=== PATIENT | female | born 1980 ===

== ENCOUNTER 2017-11-23 13:05 | Emergency (ER) | payer OTHER ==
[2017-11-23 14:11] VITALS: BMI 36.6
[2017-11-23 15:19] LABS: SQUAMOUS EPITHIAL 6 /hpf (0-5); URINE BACTERIA OCC (<OCC); URINE BILIRUBIN NEGATIVE (NEGATIVE); URINE BLOOD NEGATIVE (NEGATIVE); URINE CLARITY CLOUDY (Clear); URINE COLOR YELLOW (YELLOW); URINE GLUCOSE (UA) 50 mg/dL (Normal); URINE LEUKOCYTE ESTERASE TRACE Leu/uL (Negative); URINE PROTEIN 30 mg/dL (NEGATIVE); URINE UROBILINOGEN 0.2-1.0 mg/dL (0.2-1.0)
[2017-11-23 17:58] LABS: BASO % 0.4 % (0.0-2.0); EOS # 0.1 K/uL (0.0-0.7); EOS % 0.9 % (0.0-4.0); HEMOGLOBIN 13.1 g/dL (12.0-16.0); LYMPH # 2.8 K/uL (1.0-4.3); MEAN CELL VOLUME 90.1 fl (81.0-99.0); MEAN CORPUSCULAR HGB CONC 33.3 g/dL (33.0-37.0); MEAN PLATELET VOLUME 8.1 fl (7.2-11.7); MONO # 0.9 K/uL (0.0-0.8); MONO % 9.2 % (0.0-10.0); NEUT # 5.6 K/uL (1.8-7.0); NEUT % 59.5 % (50.0-75.0); NRBC % 0.2 % (0.0-0.0); RBC 4.38 Mil/uL (3.80-5.20); WHITE BLOOD COUNT 9.5 K/uL (4.8-10.8)
[2017-11-23] MEDS: Lactated Ringer's 1,000 ML IV SCH ×3 (18:00→19:45)
[2017-11-24 01:23] VITALS: BP 127/72; PULSE 91; RESP 18; TEMP 98.2; O2SAT 99
== END 2017-11-23 20:45 | disposition home or self-care (01) ==
LOC: H.EROB2 13:05
DX: O47.03 False labor before 37 completed weeks of gestation, third trimester (principal); Z3A.35 35 weeks gestation of pregnancy; O26.93 Pregnancy related conditions, unspecified, third trimester; R10.2 Pelvic and perineal pain
CPT/HCPCS: 81003; 85025; 86850; 86900; 96360; 99283; J7120

== ENCOUNTER 2017-12-31 19:32 | Inpatient (IN) | payer OTHER ==
--- NOTE | 2017-12-31 19:40 | OBHP ---
Datetime: 11/23/2017 14:38 IP Adm Impression: , intrauterine ; No Active Labor; Intact Membranes IP Admit Plan: Observation/Evaluation; Discharge home Admit Comment, IP Provider: 36wks GA c/o cramping. No ctxs, vb, lof. Pt reports good FM. Otherwis e pt without complaints PMHx none PSHx none Meds PNV NKDA OBHx SocHx No tox hab PE refer to PE findings A -- 36wks, no active labor. Both MWB/FWB reassuring at this time P -- discharge home Pelvic Type - PN: Adequate Extremities - PN: Normal Abdomen - PN: Normal Back - PN: Normal Breast - PN: Normal Lungs - PN: Normal Heart - PN: Normal Thyroid - PN: Normal Neurologic - PN: Normal HEENT - PN: Normal General - PN: Normal FHR - Baseline A Provider: 140s Membranes, Provider: Intact IP Hx Assessment: The History has been Reviewed and is Current EGA AdmitDate IP: 35.2 Vital Signs Provider: Reviewed; Within Normal Limits IP Chief Complaint: Uterine contractions NICHD Variability Prov Fetus A: Moderate 6-25bpm NICHD Accel Fetus A IP Provider: 15X15 FHR Category Provider Fetus A: Category I NICHD Decel Fetus A IP Provider: None Dilatation, Provider: 0 Effacement, Provider: 0 Station, Provider: -3 Genitourinary Exam: Normal DTRs - PN: Normal
[2017-12-31 19:41] VITALS: BMI 37.8
[2017-12-31 20:48] LABS: BASO % 0.3 % (0.0-2.0); EOS # 0.1 K/uL (0.0-0.7); EOS % 0.7 % (0.0-4.0); LYMPH # 1.9 K/uL (1.0-4.3); LYMPH % 26.9 % (20.0-40.0); MEAN CORPUSCULAR HEMOGLOBIN 30.7 pg (27.0-31.0); MEAN CORPUSCULAR HGB CONC 34.5 g/dL (33.0-37.0); MEAN PLATELET VOLUME 7.8 fl (7.2-11.7); MONO # 0.5 K/uL (0.0-0.8); MONO % 7.3 % (0.0-10.0); NEUT # 4.6 K/uL (1.8-7.0); NEUT % 64.8 % (50.0-75.0); RBC 3.91 Mil/uL (3.80-5.20); RED CELL DISTRIBUTION WIDTH 15.1 % (11.5-14.5); WHITE BLOOD COUNT 7.1 K/uL (4.8-10.8)
[2017-12-31] MEDS ORDERED: Oxytocin 30 units/LR 500ML 30 U/500 ML BAG IV ONE (21:35)
--- NOTE | 2017-12-31 21:51 | OBADHP ---
Datetime: 12/31/2017 20:10 Admit Comment, IP Provider: This is 37 y/o F, , IUP@40.5 comes to the [facility] for IOL Patient denies any LOF/BV/CTX, admits good FM ROS unremarkable PMH: Denies PSH: Denies Allg: NKDA Meds: PNV SH: Denies alcohol/smoking or illicit drug use FH: Dad: heart problem, MOM: Kidney problem + HTN PNC: [facility] PNI: No abnormal labs or any issues VS: Reviewed PE: As above. A/P: This is 37 y/o F, , IUP@40.5 comes to the [facility] for IOL - VS: Reviewed - Admit to L_D - Initiate IOL protocol - Serial examination - Observation, NST/FHT/VS - Reevaluate Case discussed with Dr. Elias --- Sylvie Maxwell, PGY-1 The patient was seen with the resident and I agree with the note. Bedside sonogram reveals vertex presentation induction of labor with Cervidil discussed plan of care with patient and partner agree Extremities - PN: Normal Abdomen - PN: Normal Back - PN: Normal Breast - PN: Not Done Lungs - PN: Normal Heart - PN: Normal Thyroid - PN: Normal Neurologic - PN: Normal HEENT - PN: Normal General - PN: Normal Comments, ACOG Physical Exam: GBS negative HIV/RPR nega Vital Signs Provider: Reviewed; Within Normal Limits IP Chief Complaint: Scheduled induction of labor EGA AdmitDate IP: 40.5 IP Adm Impression: Postterm, intrauterine IP Admit Plan: Admit to unit; Initiate labor induction protocol Datetime: 12/31/2017 20:03 Pelvic Type - PN: Adequate FHR - Baseline A Provider: 130 KRISTYD Variability Prov Fetus A: Moderate 6-25bpm NICHD Accel Fetus A IP Provider: 15X15 NICHD Decel Fetus A IP Provider: None Datetime: 11/23/2017 14:38 Membranes, Provider: Intact IP Hx Assessment: The History has been Reviewed and is Current FHR Category Provider Fetus A: Category I Dilatation, Provider: 0 Effacement, Provider: 0 Station, Provider: -3 Genitourinary Exam: Normal DTRs - PN: Normal
[2018-01-01] MEDS: Lactated Ringer's 1,000 ML IV SCH ×4 (02:00→20:27)
[2018-01-01] MEDS ORDERED: Nalbuphine 20 mg/ml Inj (1 ml) IVP PRN (04:37)
[2018-01-01] MEDS ORDERED: Lactated Ringer's 1,000 ML IV SCH (06:15)
[2018-01-01] MEDS ORDERED: ceFAZolin 2 GM in Sodium Chloride 0.9% 100 ML IVPB STA (09:24)
--- NOTE | 2018-01-01 09:31 | OBPN ---
Datetime: 01/01/2018 09:24 IP Informed Consent Obtain: Section Delivery Contraction Comments Provider: occasional FHR - Baseline A Provider: 150 IP Progress Note Comment: Cervidil removed earlier this AM. Patient requesting elective . R manueliewed risks/benefits of vaginal delivery with recovery and future deliveries and and futu re deliveries and recovery. Patient again requested elective , did not want to proceed witih induction. Reviewed again risks of surgery, patient signed informed consent, Ancef given pre-operati vely, SCDs bilaterally. Will proceed with when available Vital Signs Provider: Reviewed; Within Normal Limits NICHD Variability Prov Fetus A: Minimal - Undetectable to <5bpm Dilatation, Provider: closed NICHD Decel Fetus A IP Provider: None Datetime: 12/31/2017 20:03 NICHD Accel Fetus A IP Provider: 15X15 Datetime: 11/23/2017 14:38 Membranes, Provider: Intact FHR Category Provider Fetus A: Category I Effacement, Provider: 0 Station, Provider: -3
[2018-01-01] MEDS ORDERED: Phenylephrine 10 mg/ml Inj ONE (09:33)
[2018-01-01] MEDS ORDERED: ePHEDrine 50 mg/ml Inj ONE (09:35)
[2018-01-01] MEDS ORDERED: Morphine 1 mg/ml preservative-free Inj(Duramorph) ONE (09:35)
[2018-01-01] MEDS ORDERED: DiphenhydrAMINE 50 mg/ml Inj IVP PRN ×2 (10:51→18:19)
[2018-01-01] MEDS ORDERED: Oxycodone/Acetaminophen 5/325 mg Tab PO PRN ×2 (10:51→18:19)
--- NOTE | 2018-01-01 12:07 | OBDS ---
DELIVERY PERSONNEL Delivery Doctor: Maria Luisa Martinez MD Scrub Nurse: Iris Hyman Ed Special Education Teacher: Fred Lopez RN Anesthesiologist: Zuleyka Kennedy MD Resident: Ira Khanna PGY3 MATERNAL INFORMATION Delivery Anesthesia: Spinal Medications in Delivery: Pitocin 30u/500LR Provider Comments: Surgeon: Dr. Martinez Medication Specialist: Dr. Khanna PGY3 Pre-op Dx: Elective , AMA Surgery: Primary LTCS Post-op: Same Findings: live male , 7lbs 4oz, 9/9, cephalic, grossly nml tubes, uterus, omentum with adhes ions to posterior aspect of fundus, omental dissection Post-operative: Same EBL: 950mL UO:50mL Total input: 1200mL Anesthesia: Spinal by Dr. Kennedy Complications: Omental adhesions to posterior wall of uterus, lysis of adhesions Condition: Stable Pathology: Cord blood LABOR SUMMARY EDC: 12/26/2017 00:00 No. Babies in Womb: 1 LABOR INFORMATION Cervical Ripening Agents: Cervidil (Annotations: inserted by Dr. Maxwell-PGY-1) Group B Beta Strep: Negative MEMBRANES Membranes Rupture Method: Spontaneous Rupture of Membranes: 01/01/2018 06:10 Length of Rupture (hrs): 4.50 Amniotic Fluid Color: Bloody Amniotic Fluid Amount: Small Amniotic Fluid Odor: Normal STAGES OF LABOR Stage 3 hrs: 0 Stage 3 min: 2 CSECTION DELIVERY CSection Urgency: Elective CSection Incidence: Primary Labor: No Labor Elective: Elective BABY A INFORMATION Infant Delivery Date/Time: 01/01/2018 10:40 Method of Delivery: Born in Route : No : N/A Forceps: N/A Vacuum Extraction: N/A Shoulder Dystocia : No SHOULDER DYSTOCIA BABY A Infant Delivery Date/Time: 01/01/2018 10:40 PRESENTATION/POSITION BABY A Presentation: Cephalic PLACENTA INFORMATION BABY A Placenta Delivery Time : 01/01/2018 10:42 Placenta Method of Delivery: Manual Removal Placenta Status: Delivered SCORES BABY A Heart Rate 1 min: >100 bpm Resp Effort 1 min: Good Cry Reflex Irritability 1 min: Cough or Sneeze or Pulls Away Muscle Tone 1 min: Active Motion Color 1 min: Body [place], Extremities Blue SCORE 1 MIN: 9 Heart Rate 5 min: >100 bpm Resp Effort 5 min: Good Cry Reflex Irritability 5 min: Cough or Sneeze or Pulls Away Muscle Tone 5 min: Active Motion Color 5 min: Body [place], Extremities Blue SCORE 5 MIN: 9 INFORMATION BABY A Gestational Age at Delivery: 40.6 Gestational Status: Term Infant Outcome : Liveborn Infant Condition : Stable Infant Sex: Male IDENTIFICATION/MEDS BABY A ID Band Number: [id number] ID Band Location: Left Leg; Left Arm WEIGHT/LENGTH BABY A Infant Birthweight (gms): 3300 Infant Weight (lb): 7 Weight (oz): 4 CORD INFORMATION BABY A No. Cord Vessels: 3 Nuchal Cord : Around Neck x1, Loose Cord Blood Taken: Yes Infant Suction: None; Mouth ASSESSMENT BABY A Complications: None Physical Findings at Delivery: Within Normal Limits Respirations: Appears Normal Infant Care By: Haroon
--- NOTE | 2018-01-01 15:35 | OP ---
PROCEDURE DATE: 01/01/2018 PREOPERATIVE DIAGNOSES: Elective section, advanced maternal age at term. POSTOPERATIVE DIAGNOSIS: Elective section, advanced maternal age at term. SURGERY: Primary low transverse section. SURGEON: Betsy Martinez MD BAND TOP MAKER: , PGY-3. TYPE OF ANESTHESIA: Spinal. ANESTHESIA ADMINISTERED BY: Leon Kennedy MD FINDINGS: Live male , 7 pounds 4 ounces, 9 and 9 Apgars, grossly normal tubes, uterus and placenta. Omentum with adhesions to posterior aspect of uterus. ESTIMATED BLOOD LOSS: 950 mL. URINE OUTPUT: 50 mL. TOTAL FLUID INPUT: 1200 mL. COMPLICATIONS: Omental adhesions to posterior wall of uterus, lysis of adhesions. CONDITION: Stable. PATHOLOGY SPECIMEN: Cord blood. INDICATIONS: This is a 37-year-old at 40 plus weeks who presents to labor and delivery for induction. The patient did not progress in labor after half a day of induction and at this point, the patient requested for elective . The patient was advised the risks and benefits of an elective in terms of postoperative recovery and future delivery complications as well as vaginal delivery for recovery as well as future delivery complications and benefits. The patient after understanding risks and benefits of both options still requested to proceed with elective . The induction process was stopped and elective process was initiated. The patient was advised the risks and benefits of surgery including risk of bleeding, infection, damage to surrounding organs. The patient signed informed consent. The patient was taken to the OR when available. DESCRIPTION OF PROCEDURE: The patient was taken to the OR. Ancef was given preoperatively. SCDs were placed bilaterally. The patient was prepped and draped in a normal sterile fashion in dorsal supine position with a leftward tilt. A Pfannenstiel skin incision was made with a scalpel and carried through to the underlying layer of fascia with the scalpel and the Bovie. The fascia was incised in the midline. The incision was extended laterally with the Bovie. We incised the fascia of the midline. We used the Jose Guadalupe clamps and tented up the inferior aspect of this incision, which we dissected off of the underlying pyramidalis muscles with the Bovie. In a similar fashion, we dissected off of the rectus abdominis muscles with the Bovie. We the muscles bluntly at the midline. The peritoneum identified, grasped with hemostats and entered sharply with the Metzenbaum scissors. The incision was extended superiorly and inferiorly with good visualization of all underlying organs. Bladder blade was inserted. Vesicouterine peritoneum was identified, grasped with pickups and Metzenbaum scissors and a bladder flap was created. The lower uterine segment was incised in a transverse fashion. The uterine cavity was entered. Clear fluid was noted. The uterine incision was extended manually. The was delivered in cephalic presentation atraumatically followed by shoulders and rest of the infant atraumatically. Double nuchal cord loose was noted. Cord was clamped and cut. Infant was handed off to the awaiting pediatric team. Cord blood was obtained. Placenta was extracted manually. Uterus was exteriorized, cleared off all clots. Uterine incision was repaired with an 0 Vicryl stitch with second imbricating 0 Monocryl stitch. Some bleeders and the hysterotomy site were reinforced with an 0-Monocryl stitch. It is noted at this point that the omentum had some filmy adhesions to the posterior wall. We dissected carefully and that clears base aspects. Bleeding was coagulated with Bovie on the uterine wall and some small bleeders were tamponaded with 2-0 Vicryl stitch on the posterior wall. The omentum was inspected and areas that had defects in them were taken down. Bleeding was tamponaded with Bovie as well as free ties and 2-0 Vicryl stitching. The omentum at the end was reinspected and found to be hemostatic. The uterus was returned to the abdomen and gutters were cleared off all clots. Hysterotomy site again was reinspected and found to be hemostatic. The peritoneum was closed with 2-0 Monocryl and muscle was reapproximated with the same stitch. Small bleeding on the muscle was tamponaded with 2-0 Monocryl. Again the muscle was look that and found to be hemostatic. The fascia was closed with an 0 Vicryl. The subcutaneous fat was reapproximated with plain gut suture and the skin was closed with 4-0 Monocryl. Sponge, laps and instrument counts were correct x4. The patient was taken to the recovery room in stable condition. There are no other complications. Betsy Martinez MD [facility] # [id number]
[2018-01-02] MEDS: Lactated Ringer's 1,000 ML IV SCH (03:53)
[2018-01-02 06:38] LABS: HEMOGLOBIN 9.5 g/dL (12.0-16.0); MEAN CELL VOLUME 89.6 fl (81.0-99.0); MEAN CORPUSCULAR HEMOGLOBIN 29.9 pg (27.0-31.0); MEAN CORPUSCULAR HGB CONC 33.3 g/dL (33.0-37.0); RBC 3.18 Mil/uL (3.80-5.20); RED CELL DISTRIBUTION WIDTH 15.6 % (11.5-14.5); WHITE BLOOD COUNT 10.7 K/uL (4.8-10.8)
--- NOTE | 2018-01-02 11:28 | OBPPN ---
Datetime: 01/02/2018 11:22 PP Pain Prov: Within normal limits PP Nausea Prov: Denies PP Flatus Prov: No PP BM Prov: No PP Breasts Prov: Normal PP Heart Prov: Normal PP Lungs Prov: Normal PP Abdomen/Uterus Prov: Normal PP Lochia Prov: Normal PP Vulva/Perineum Prov: Not Done PP CVA Tenderness Prov: Normal PP Extremities Prov: Normal PP C/S Incision Prov: Normal PP Progress Prov: Normal PP Impression Prov: Normal progression PP Plan Prov: Continue present management PP Progress Note Prov: She feels fine; wants to get OOB H/H 06/15 A; S/P C/S day1 Anemia asymptomatic PLAN: Continue postop care Vital Signs Provider PP: Reviewed; Within Normal Limits
--- NOTE | 2018-01-03 10:23 | OBPPN ---
Datetime: 01/03/2018 10:21 PP Pain Prov: Within normal limits PP Nausea Prov: Denies PP Flatus Prov: Yes PP Breasts Prov: Not Done PP Heart Prov: Normal PP Lungs Prov: Normal PP Abdomen/Uterus Prov: Normal PP Lochia Prov: Not Done PP Vulva/Perineum Prov: Not Done PP CVA Tenderness Prov: Normal PP Extremities Prov: Normal PP Impression Prov: Normal progression PP Plan Prov: Continue present management PP Progress Note Prov: Patient doing well ambulating tolerating diet and pain well controlled Vital signs stable afebrile Uterus firm below the umbilicus Incision clean dry and intact Extremities no Homans day #2 Ambulate, and analgesia as needed Anticipate discharge in a.m. Vital Signs Provider PP: Reviewed
[2018-01-04 18:05] VITALS: BP 128/85; PULSE 91; RESP 20; TEMP 97; O2SAT 100
== END 2018-01-04 13:40 | disposition home or self-care (01) | DRG 766 ==
LOC: H.EROB2 19:32 → H.L&D 19:56 → H.OB/GYN 01-01 18:12
PROVIDERS: ADMIT Obstetrics & Gynecology Gynecology; ATTEND Obstetrics & Gynecology Gynecology
PROC: 10D00Z1 Extraction of Products of Conception, Low, Open Approach (ICD-10-PCS; principal; 2018-01-01)
PROC: 4A1HXCZ Monitoring of Products of Conception, Cardiac Rate, External Approach (ICD-10-PCS; 2018-01-01)
DX: O48.0 Post-term pregnancy (principal); Z37.0 Single live birth; O69.81X0 Labor and delivery complicated by cord around neck, without compression, not applicable or unspecified; Z3A.40 40 weeks gestation of pregnancy; K66.0 Peritoneal adhesions (postprocedural) (postinfection); Z82.49 Family history of ischemic heart disease and other diseases of the circulatory system